=== PATIENT | female | born 1950 | race Caucasian/White ===

== ENCOUNTER 2016-11-02 11:24 | Day surgery (SDC) | payer OTHER ==
[~2016-11-02] VITALS: Ht 167.6 cm; Wt 77.6 kg
[2016-11-02 12:44] VITALS: Ht 167.6 cm; Wt 77.6 kg
[2016-11-02 13:34] VITALS: BP 104/65; PULSE 73; RESP 14
[2016-11-02] MEDS ORDERED: PROPOFOL 20 ML ONE (13:45)
[2016-11-02 14:56] VITALS: BP 106/64; PULSE 64; RESP 21
--- NOTE | 2016-11-03 07:08 | GILP ---
DATE OF PROCEDURE: 11/02/2016 NAME OF PROCEDURE: Esophagogastroduodenoscopy with biopsies. SURGEON: Daron Canada MD PREOPERATIVE DIAGNOSIS: POSTOPERATIVE DIAGNOSIS: BRIEF HISTORY AND INDICATIONS: The patient is being evaluated for elevated CA 19-9, unexplained cynthia ght loss, and abdominal pain. PREMEDICATION: Monitored anesthesia care by anesthesiologist. INSTRUMENT USED: Olympus panendoscope. TECHNIQUE: After informed consent, with the patient/relatives understanding the procedure, its indic ations, potential risks and complications, including but not limited to: allergic reaction, bleeding , perforation or infection, and after all pertinent questions were answered to the patient's satisfa ction, the patient/relatives signed witnessed informed consent. Following this, premedication was administered slowly IV push under careful cardiovascular and respi ratory monitoring with pulse oximetry, automatic blood pressure and athletic monitor. Once the sedative effect was achieved the patient was place in the left lateral decubitus, the panen doscope was introduced and advanced under visual control. Careful examination of the upper gastrointestinal tract, both on insertion as well as withdrawal of the instrument disclosed the following findings: ESOPHAGUS: The distal esophagus shows erythema and edema of the mucosa of a moderate degree. There is a moderate-sized hiatal hernia. STOMACH: Upon entrance to the stomach air was insufflated, the gastric walsh distended normally. Th e mucosa of the fundus, body, and antrum of the stomach were carefully examined. Show erythema and edema of the mucosa of a moderate degree. Biopsies were obtained to rule out H pylori infection. PYLORUS: The pylorus appears patent and within normal limits, with no evidence of gastric outlet ob struction. DUODENUM: The duodenal mucosa was carefully examined in the duodenal bulb as well as the second por tion of the duodenum and appears unremarkable with no evidence of duodenitis, ulcer or neoplasm. The instrument was then withdrawn, the patient tolerated the procedure well and was transfer out of the endoscopy suite awake, and in good condition to continue recovery under observation IMPRESSION: 1. Esophagitis, moderate. 2. Hiatal hernia, medium size. 3. Gastritis, moderate. Rule out Helicobacter pylori infection, biopsies obtained. PLAN: We will continue PPIs. Pathology will be reviewed as soon as available. Further recommendat ion will depend on the patient's clinical course as well as review of biopsies. Dictated By: DARON CANADA MS/NTS Conf#: [id number] [facility]#: [id number]
--- NOTE | 2016-11-03 07:14 | GILP ---
DATE OF PROCEDURE: NAME OF PROCEDURE: Colonoscopy, incomplete. SURGEON: Daron Canada MD PREOPERATIVE DIAGNOSIS(ES) POSTOPERATIVE DIAGNOSIS(ES) BRIEF HISTORY AND INDICATIONS: The patient is being evaluated for elevated CA 19-9 titers, weight l oss, previous history of severe and complicated episodes of diverticulitis. There is a questionable colocolonic fistula on CT examination. PREMEDICATION: INSTRUMENT USED: PREPARATION: TECHNIQUE: After informed consent with the patient understanding the procedure, its potential risks and complications as well as alternatives and after informed consent was obtained, the patient was placed in the left lateral decubitus. Following this digital rectal examination was performed showi ng no abnormalities. Following this, the Olympus pediatric colonoscope was introduced and advanced under visual guidance. As we reached the sigmoid colon, extensive diverticulosis is present. There is also severe angulations and stricture/spasm suppressant which precludes safe advancement of the instrument. We withdrew the colonoscope and introduced an upper endoscope to attempt to negotiate this area. Unfortunately, the same conditions were encountered, and we decided to terminate the pro cedure. She appears to be unsafe to pursue further advancement of the instrument. IMPRESSION: 1. Severe diverticulosis with narrowing/spasm/stricture and angulation. Making advancement of the instrument unsafe. 2. Moderate-sized internal hemorrhoids. PLAN: The patient will be followed up as an outpatient. CT colonography (virtual colonoscopy) will be requested to assist the area. The findings were explained to the patient's daughter. Dictated By: DARON CANADA MS/ERIN Conf#: [id number] [facility]#: [id number]
== END 2016-11-02 15:27 | disposition home or self-care (01) ==
LOC: GIL 11:24
PROVIDERS: ATTEND Internal Medicine Gastroenterology
DX: Z12.11 Encounter for screening for malignant neoplasm of colon (principal); K29.30 Chronic superficial gastritis without bleeding; K57.90 Diverticulosis of intestine, part unspecified, without perforation or abscess without bleeding; K64.8 Other hemorrhoids; K20.9 Esophagitis, unspecified; K29.70 Gastritis, unspecified, without bleeding; K44.9 Diaphragmatic hernia without obstruction or gangrene; E66.9 Obesity, unspecified; Z68.27 Body mass index [BMI] 27.0-27.9, adult
CPT/HCPCS: 43239; 45378; 88305; 88312; Z7610